=== PATIENT | male | born 1985 | race African-American/Black ===

== ENCOUNTER 2020-08-15 23:34 | Inpatient (IN) | payer OTHER, SELFPAY ==
[2020-08-16] MEDS ORDERED: IBUPROFEN 800 MG TAB PO ONE (00:46)
[2020-08-16] MEDS ORDERED: SODIUM CHLORIDE 0.9% 500 ML 500 ML IV ONE (00:46)
[2020-08-16 01:36] LABS: Basophils % (Auto) 0.3 % (0.0-1.8); Hematocrit 43.4 % (35.5-45.6); Hemoglobin 15.2 gm/dl (11.8-15.2); Lymphocytes # (Auto) 0.8 K/mm3 (1.2-5.4); Lymphocytes % (Auto) 8.2 % (13.4-35.0); Mean Corpuscular HGB Conc 35 % (32-34); Mean Corpuscular Volume 91 fl (84-94); Monocytes # (Auto) 0.5 K/mm3 (0.0-0.8); Monocytes % (Auto) 4.4 % (0.0-7.3); Platelet Count 212 K/mm3 (140-440); Red Blood Count 4.79 M/mm3 (3.65-5.03)
[2020-08-16 01:45] LABS: INR 1.08 (0.87-1.13)
--- NOTE | 2020-08-16 01:50 | XRay Report ---
CHEST 1 VIEW 08/16/2020 1:28 AM INDICATION / CLINICAL INFORMATION: possible Sepsis. Fever and headache. COMPARISON: None available. FINDINGS: SUPPORT DEVICES: None. HEART / MEDIASTINUM: No significant abnormality. LUNGS / PLEURA: No significant pulmonary or pleural abnormality. No pneumothorax. ADDITIONAL FINDINGS: No significant additional findings. IMPRESSION: 1. No acute findings. Signer Name: Christine Joseph MD Signed: 08/16/2020 1:45 AM Workstation Name: [id number]
[2020-08-16 01:57] LABS: Alanine Aminotransferase 134 units/L (7-56); Albumin 4.3 g/dL (3.9-5); BUN/Creatinine Ratio 9; Blood Urea Nitrogen 9 mg/dL (9-20); Calcium 8.9 mg/dL (8.4-10.2); Hemolysis Index 11
[2020-08-16] MEDS ORDERED: SODIUM CHLORIDE 0.9% 1000 ML 1,000 ML IV ONE ×2 (02:51→06:30)
[2020-08-16] MEDS ORDERED: SODIUM CHLORIDE 0.9% 1000 ML IV SOLN IV ONE (04:16)
[2020-08-16] MEDS ORDERED: CEFEPIME/NS 2 GM/100 ML 2 GM/100 ML BAG IV ONE (04:17)
--- NOTE | 2020-08-16 04:25 | Emergency Department Report ---
ED Fever HPI - General Chief Complaint: Fever Stated Complaint: FEVER Time Seen by Provider: 08/16/20 02:16 Source: patient - History of Present Illness Initial Comments: 35-year-old male, no past medical history, presents to ED with complaint of fever. Patient reports fever began last night around 6 PM. He reports associated headache, sore throat. He denies any cough, shortness of breath, vomiting, diarrhea, abdominal pain. He denies any known contact with anyone who has tested positive for COVID-19. Timing/Duration: this evening Fever Severity/Quality: subjective Fever Therapy SILK BLOCKER: Ibuprofen, Tylenol Associated Symptoms: headache, muscle aches, sore throat. denies: abdominal pain, chest pain, cough, nausea/vomiting, shortness of breath ED Review of Systems ROS: Stated complaint: FEVER Other details as noted in HPI Comment: All other systems reviewed and negative Constitutional: fever ENT: throat pain Respiratory: denies: cough, shortness of breath Cardiovascular: denies: chest pain Gastrointestinal: denies: abdominal pain, nausea, vomiting, diarrhea Musculoskeletal: myalgia Neurological: headache ED Past Medical Hx - Past Medical History Previous Medical History?: No - Surgical History Past Surgical History?: No - Social History Smoking Status: Current Every Day Smoker Substance Use Type: None ED Physical Exam - General Limitations: No Limitations General appearance: alert, in no apparent distress - Head Head exam: Present: atraumatic, normocephalic - Eye Eye exam: Present: normal appearance, PERRL, EOMI - ENT ENT exam: Present: mucous membranes moist - Neck Neck exam: Present: normal inspection - Respiratory Respiratory exam: Present: normal lung sounds bilaterally. Absent: respiratory distress - Cardiovascular Cardiovascular Exam: Present: regular rate, normal rhythm - GI/Abdominal GI/Abdominal exam: Present: soft. Absent: distended, tenderness - Extremities Exam Extremities exam: Present: normal inspection - Neurological Exam Neurological exam: Present: alert, oriented X3 - Psychiatric Psychiatric exam: Present: normal affect, normal mood - Skin Skin exam: Present: warm, dry, intact, normal color ED Course Vital Signs 08/16/20 08/16/20 08/16/20 00:38 00:51 02:10 Temperature 102.3 F H Pulse Rate 128 H 103 H Respiratory 20 18 Rate Blood Pressure Blood Pressure 98/42 [Right] O2 Sat by Pulse 97 Oximetry 08/16/20 08/16/20 08/16/20 02:15 02:30 02:45 Temperature Pulse Rate 100 H 92 H 95 H Respiratory 27 H 25 H 29 H Rate Blood Pressure 99/56 91/56 95/60 Blood Pressure [Right] O2 Sat by Pulse 93 95 97 Oximetry 08/16/20 02:48 Temperature 99 F Pulse Rate Respiratory Rate Blood Pressure Blood Pressure [Right] O2 Sat by Pulse Oximetry ED Medical Decision Making - Lab Data Result diagrams: 08/16/20 01:02 08/16/20 01:02 - EKG Data -: EKG Interpreted by Nv EKG shows normal: sinus rhythm, axis, intervals, QRS complexes, ST-T waves Rate: tachycardia (rate 114) - EKG Data Interpretation: no acute changes - Radiology Data Radiology results: report reviewed, image reviewed - Medical Decision Making 35-year-old male presents to ED with fever, headache, sore throat, body aches. Rapid flu and strep tests are both negative. Chest x-ray is negative. Patient denies any shortness of breath. O2 sats are normal. WBCs are normal, not elevated. Patient does have elevated LFTs. Abdomen is soft, nontender. He denies any vomiting or diarrhea. Abdominal ultrasound only shows hepatic steatosis. Patient has had slightly low blood pressures during his ED stay. He has been given 30 cc/kg normal saline bolus. Blood cultures drawn, cefepime given. Covid markers sent. Covid test pending. Patient will be admitted to hospitalist for further management. - Differential Diagnosis Pneumonia, influenza, COVID-19, UTI Critical Care Time: Yes Critical care time in (mins) excluding proc time.: 35 Critical care attestation.: If time is entered above; I have spent that time in minutes in the direct care of this critically ill patient, excluding procedure time. Critical Care Time: 35 min ED Disposition Clinical Impression: Suspected 2019 novel coronavirus infection, Sepsis, Transaminitis Disposition: 09 OP ADMIT IP TO THIS HOSP Is pt being admited?: Yes Condition: Stable Referrals: PRIMARY CARE, [Primary Care Provider] - 3-5 Days Time of Disposition: 04:46
--- NOTE | 2020-08-16 04:38 | Ultrasound Report ---
ULTRASOUND ABDOMEN, COMPLETE INDICATION / CLINICAL INFORMATION: fever, elevated liver enzymes. COMPARISON: None available. FINDINGS: PANCREAS: No significant abnormality. ABDOMINAL AORTA: No significant abnormality. IVC: No significant abnormality. LIVER: Upper normal size measuring 16.4 cm. Liver is mildly echogenic. GALLBLADDER: No significant abnormality. BILE DUCTS: No significant abnormality. Common bile duct measures 2.4 mm. KIDNEYS: Right: No significant abnormality. Left: No significant abnormality. SPLEEN: No significant abnormality. FREE FLUID: None. ADDITIONAL FINDINGS: None. IMPRESSION: 1. Echogenic liver which can be seen in the setting of hepatic steatosis. Signer Name: Christine Joseph MD Signed: 08/16/2020 4:34 AM Workstation Name: [id number]
[2020-08-16 04:56] LABS: Bacteria,Urine 1+ /HPF (Negative); Bilirubin,Urine NEG (Negative); Blood,Urine NEG (Negative); Color,Urine Yellow (Yellow); Protein,Urine <15 mg/dL mg/dL (Negative); RBC,Urine < 1.0 /HPF (0.0-6.0)
--- NOTE | 2020-08-16 05:17 | History and Physical Report ---
History of Present Illness Date of examination: 08/16/20 Date of admission: 08/16/20 Chief complaint: Fever headache General body ache History of present illness: Howard is a 35-year-old male presents to ED with complaint of fever. His fever started last night around 6 PM. He reports associated headache, sore throat. He denies any cough, shortness of breath, vomiting, diarrhea, abdominal pain. He denies any known contact with anyone who has tested positive for COVID-19. ED work up shows WBC 10.3, hemoglobin 15.2, sodium 136, AST 154, ALT 134, influnenza A/B negative Abdominal US negative, Chest x-ray-no acute finding Patient seen at bedside in ED. patient denies tobacco, alcohol, and illicit drug use. patient reports Headache -pain level 7/10, He also reports generalized body ache. Past History Past Medical History: No medical history Past Surgical History: No surgical history Social history: no significant social history Family history: no significant family history Medications and Allergies Allergies Allergy/AdvReac Type Severity Reaction Status Date / Time No Known Allergies Allergy Verified 08/16/20 02:18 Review of Systems Constitutional: fever, fatigue Ears, nose, mouth and throat: sore throat Neurological: headaches Exam - Constitutional Vitals: Temp Pulse Resp BP Pulse Ox 99 F 95 H 29 H 95/60 97 08/16/20 02:48 08/16/20 02:45 08/16/20 02:45 08/16/20 02:45 08/16/20 02:45 General appearance: Present: mild distress, well-nourished - EENT Eyes: Present: PERRL ENT: hearing intact, clear oral mucosa - Neck Neck: Present: supple, normal ROM - Respiratory Respiratory effort: normal Respiratory: bilateral: CTA - Cardiovascular Heart rate: 95 Heart Sounds: Present: S1 & S2. Absent: rub, click - Extremities Extremities: pulses symmetrical, No edema Peripheral Pulses: within normal limits - Abdominal General gastrointestinal: Present: soft, non-tender, non-distended, normal bowel sounds Male genitourinary: Present: normal - Integumentary Integumentary: Present: clear, warm, dry - Musculoskeletal Musculoskeletal: gait normal, strength equal bilaterally - Psychiatric Psychiatric: appropriate mood/affect, intact judgment & insight, cooperative - Neurologic Neurologic: CNII-XII intact, moves all extremities - Allied Health Allied health notes reviewed: nursing, PT Results - Labs CBC & Chem 7: 08/16/20 01:02 08/16/20 04:27 Labs: Abnormal lab results 08/16/20 08/16/20 08/16/20 Range/Units 01:02 01:02 01:02 MCHC 35 H (32-34) % RDW 13.0 L (13.2-15.2) % Lymph % (Auto) 8.2 L (13.4-35.0) % Lymph # (Auto) 0.8 L (1.2-5.4) K/mm3 Seg Neutrophils % 87.1 H (40.0-70.0) % Seg Neutrophils # 9.0 H (1.8-7.7) K/mm3 Sodium 136 L (137-145) mmol/L Chloride 97.0 L (98-107) mmol/L Glucose 181 H (75-100) mg/dL Lactic Acid 2.50 H* (0.7-2.0) mmol/L AST 154 H (5-40) units/L ALT 134 H (7-56) units/L Assessment and Plan - Patient Problems (1) DVT prophylaxis Current Visit: Yes Status: Acute Plan to address problem: lovenox (2) Sepsis Current Visit: Yes Status: Acute Plan to address problem: Lactic acid 2.5 and repeat normal Monitor vital sighs Given Iv bolus in ED Flu, strep test done negative Will do covid 19 test-in am Blood and throat culture Empiric abx with rocephine (3) Suspected 2019 novel coronavirus infection Current Visit: Yes Status: Acute Plan to address problem: isolation precaution Check covid 19 test monitor inflammatory makers (4) Transaminitis Current Visit: Yes Status: Acute Plan to address problem: ? cause Abdominal US negative continue IV hydration
[2020-08-16 05:28] LABS: C-Reactive Protein 7.1 mg/dL (0.00-1.30)
[2020-08-16] MEDS ORDERED: SODIUM CHLORIDE 0.9% 1000 ML 1,000 ML ONE ×3 (06:31→20:06)
[2020-08-16] MEDS ORDERED: methylPREDNISolone Sod Succinate 125 MG/2 ML INJ IV ONE (06:44)
[2020-08-16] MEDS ORDERED: methylPREDNISolone Sod Succinate 125 MG/2 ML INJ ONE ×2 (06:46→16:06)
[2020-08-16] MEDS ORDERED: cefTRIAXone/NS 1 GM/50 ML 1 GM/50 ML BAG IV ONE (10:20)
--- NOTE | 2020-08-16 10:38 | Cat Scan Report ---
CT head/brain wo con INDICATION / CLINICAL INFORMATION: 35 years Male; headache. TECHNIQUE: Routine CT head without contrast. All CT scans at this location are performed using CT dos e reduction for ALARA by means of automated exposure control. COMPARISON: None. FINDINGS: BRAIN / INTRACRANIAL CONTENTS: The brain demonstrate appropriate attenuation for age. The ventricular system is within normal limits in size and configuration. There is no CT evidence of acute intracran ial hemorrhage or significant mass effect. ORBITS: No significant abnormality of visualized orbits. SINUSES / MASTOIDS: There is focal opacification involving the anterior left ethmoid air cells. CRANIOCERVICAL JUNCTION: No significant abnormality. ADDITIONAL FINDINGS: None. IMPRESSION: 1. There is no CT evidence of acute intracranial process. 2. There is focal opacification involving the anterior left ethmoid air cells. Signer Name: Evan Chahal MD Signed: 08/16/2020 10:33 AM Workstation Name: [id number]
--- NOTE | 2020-08-16 10:43 | Cat Scan Report ---
CTA CHEST WITH IV CONTRAST INDICATION: Acute onset chest pain with dyspnea TECHNIQUE: Axial CT images were obtained through the chest after injection of 100 mL IV contrast. 3 plane MIP re constructions were produced. All CT scans at this location are performed using CT dose reduction for ALARA by means of automated exposure control. COMPARISON: None available. FINDINGS: PULMONARY ARTERIES: No pulmonary emboli. Technique for detection of pulmonary thromboembolus is decre ased secondary to arm position. AORTA AND ARTERIES: No acute abnormality. MEDIASTINUM: No mass, lymphadenopathy or other significant abnormality. The heart is normal in size w ithout a pericardial effusion. The trachea and main bronchi are patent and normal in caliber. LUNGS: No suspicious consolidation, nodule or mass. No pneumothorax or pleural effusion. ADDITIONAL FINDINGS: Fatty liver. UPPER ABDOMEN: No acute findings. BONES: No significant osseous abnormality. IMPRESSION: 1. No definite CT evidence for pulmonary embolism. 2. No acute findings. Signer Name: Paco Zhu MD Signed: 08/16/2020 10:38 AM Workstation Name: [id number]
[2020-08-16] MEDS: cefTRIAXone/NS 1 GM/50 ML 1 GM/50 ML BAG IV SCH (13:23)
[2020-08-16] MEDS: ZINC SULFATE 220 MG CAP PO SCH (13:24)
[2020-08-16] MEDS: ASCORBIC ACID 500 MG TAB PO SCH ×2 (13:24→22:59)
--- NOTE | 2020-08-16 13:53 | Consultation ---
History of Present Illness - Reason for Consult Consult date: 08/16/20 r/o covid Requesting physician: OSMANI NAVARRETE - History of Present Illness 35 years old male without any medical history admitted on 08/16/2020 due to 24- hour history of severe generalized malaise, fever, headaches and sore throat. Patient denies any cough, shortness of breath, dyspnea on exertion, nausea, vomiting, diarrhea. Patient denies any contact with COVID-19 patients. On arrival, temperature 102.3, HR 128, RR 27, O2 sat 97, BP 98/42. Initial WBC 10.3. AST 154. ALT 134. Ferritin 905. D-dimer 407. Procalcitonin 0.45. Urinalysis negative. Group A strep antigen negative. Influenza antigen negative. Blood culture 08/16/2020 pending. Chest x-ray unremarkable. CT [facility] [address] shows no pulmonary embolism, no pneumonia. CT of the head shows focal left ethmoid sinusitis. Ultrasound of the abdomen shows echogenic liver consistent with hepatic steatosis. Patient is currently on room air. Review of Systems: reviewed ED and H&P notes. Limited due to PPE conservation strategy Past History Past Medical History: No medical history Past Surgical History: No surgical history Social history: no significant social history Family history: no significant family history Medications and Allergies Allergies Allergy/AdvReac Type Severity Reaction Status Date / Time No Known Allergies Allergy Verified 08/16/20 02:18 Active Meds: Active Medications Ascorbic Acid (Vitamin C) 500 mg PO BID CATRACHITO Last Admin: 08/16/20 13:24 Dose: 500 mg Documented by: Azithromycin 500 mg/ Sodium (Chloride) 250 mls @ 250 mls/hr IV Q24HR CATRACHITO; Protocol Sodium Chloride (Nacl 0.9% 1000 Ml) 1,000 mls @ 100 mls/hr IV DIRECT CATRACHITO Ceftriaxone Sodium (Rocephin/Ns 1 Gm/50 Ml) 1 gm in 50 mls @ 100 mls/hr IV Q24HR CATRACHITO; Protocol Last Admin: 08/16/20 13:23 Dose: 100 mls/hr Documented by: Methylprednisolone Sodium Succinate (Solu-Medrol) 125 mg IV Q8HR CATRACHITO Zinc Sulfate (Zinc Sulfate) 220 mg PO QDAY CATRACHITO Last Admin: 08/16/20 13:24 Dose: 220 mg Documented by: Physical Examination - Physical Exam Narrative exam: Physical Exam: reviewed ED and hospitalist notes, limited due to conservation of PPE and decrease risk of transmission. General appearance: limited due to conservation of PPE Eyes: limited due to conservation of PPE HENT: Atraumatic; limited due to conservation of PPE Lungs: limited due to conservation of PPE CV: limited due to conservation of PPE Abdomen: limited due to conservation of PPE Extremities: limited due to conservation of PPE Skin: limited due to conservation of PPE Psych: limited due to conservation of PPE Neuro: limited due to conservation of PPE - Constitutional Vitals: Vital Signs Temp Pulse Resp BP Pulse Ox 98.2 F 120 H 35 H 85/47 97 08/16/20 05:38 08/16/20 10:09 08/16/20 10:09 08/16/20 10:09 08/16/20 10:09 Temperature -Last 24 Hours Temperature 98.2 F Temperature 99 F Temperature 102.3 F Results - Labs CBC & Chem 7: 08/16/20 01:02 08/16/20 04:27 Labs: Abnormal lab results 08/16/20 08/16/20 08/16/20 Range/Units 01:02 01:02 01:02 MCHC 35 H (32-34) % RDW 13.0 L (13.2-15.2) % Lymph % (Auto) 8.2 L (13.4-35.0) % Lymph # (Auto) 0.8 L (1.2-5.4) K/mm3 Seg Neutrophils % 87.1 H (40.0-70.0) % Seg Neutrophils # 9.0 H (1.8-7.7) K/mm3 D-Dimer (0-234) ng/mlDDU Sodium 136 L (137-145) mmol/L Chloride 97.0 L (98-107) mmol/L Glucose 181 H (75-100) mg/dL Lactic Acid 2.50 H* (0.7-2.0) mmol/L Ferritin (30.0-300.0) ng/mL AST 154 H (5-40) units/L ALT 134 H (7-56) units/L Lactate Dehydrogenase (91-180) units/L C-Reactive Protein (0.00-1.30) mg/dL 08/16/20 08/16/20 08/16/20 Range/Units 04:27 04:27 04:27 MCHC (32-34) % RDW (13.2-15.2) % Lymph % (Auto) (13.4-35.0) % Lymph # (Auto) (1.2-5.4) K/mm3 Seg Neutrophils % (40.0-70.0) % Seg Neutrophils # (1.8-7.7) K/mm3 D-Dimer 407.28 H (0-234) ng/mlDDU Sodium (137-145) mmol/L Chloride (98-107) mmol/L Glucose 117 H (75-100) mg/dL Lactic Acid (0.7-2.0) mmol/L Ferritin 905.5 H (30.0-300.0) ng/mL AST (5-40) units/L ALT (7-56) units/L Lactate Dehydrogenase 252 H (91-180) units/L C-Reactive Protein 7.10 H (0.00-1.30) mg/dL Assessment and Plan Cultures: Blood culture SARS CoV2 PCR Assessment: 35 years old male without any medical history admitted on 08/16/2020 due to 24-hour history of severe generalized malaise, fever, headaches and sore throat: #SIRS rule out sepsis: Present on admission with high fever, tachycardia, hypot ension, elevated lactate; of unclear etiology. Constellation of symptoms suspicious for COVID-19 and influenza. Chest x-ray negative for consolidation. CT of the chest negative for consolidation or PE. Rapid strep antigen negative. Influenza antigen negative. Blood cultures pending. CT head with focal left ethmoidal sinusitis. Patient is on room air, no evidence of hypoxia. Noted procalcitonin mildly elevated at 0.4. #Transaminitis: Of unclear etiology, slightly secondary to baseline systemic infection ? COVID-19 versus influenza. Ultrasound of the liver showing hepatic steatosis. Recommendations: -Obtain influenza PCR -Obtain acute hepatitis panel -Follow-up SARS-CoV-2 PCR -pending -If SARS-CoV-2 PCR and influenza PCR negative consider lumbar puncture to rule out meningitis -No indication for dexamethasone or remdesivir as patient is not hypoxic -Continue ceftriaxone and azithromycin for now -Monitor liver function test All laboratory, cultures and imaging were reviewed. Will follow Marianna De Leon MD Infectious Diseases Police Officer Booking [facility] ([facility]) M [phone] O [phone]
[2020-08-16] MEDS: AZITHROMYCIN 500 MG in SODIUM CHLORIDE 0.9% 250ML 250 ML IV SCH (14:12)
--- NOTE | 2020-08-16 16:34 | Event Note ---
Date: 08/16/20 This is the second IMS visit of the day Patient had a complete history and physical earlier this morning ID note reviewed Covid test is indeterminate Will be repeated tomorrow Influenza is negative Continue present care I did not do a physical examination on the patient to preserve PPE Also patient was seen only a few hours earlier and had a complete physical All lab results were reviewed
[2020-08-16] MEDS: methylPREDNISolone Sod Succinate 125 MG/2 ML INJ IV SCH ×2 (16:41→22:59)
[2020-08-16] MEDS ORDERED: ONDANSETRON 4 MG/2 ML INJ IV NR (19:00)
[2020-08-16] MEDS: SODIUM CHLORIDE 0.9% 1000 ML 1,000 ML IV SCH (20:11)
[2020-08-17] MEDS ORDERED: methylPREDNISolone Sod Succinate 125 MG/2 ML INJ ONE ×2 (05:50→14:05)
[2020-08-17] MEDS ORDERED: oxyCODONE /ACETAMINOPHEN 5-325MG TAB ONE ×2 (05:50)
[2020-08-17] MEDS ORDERED: ZINC SULFATE 220 MG CAP PO ONE (10:15)
[2020-08-17] MEDS ORDERED: cefTRIAXone/NS 2 GM/100 ML IVPB IV ONE (10:15)
[2020-08-17] MEDS ORDERED: ASCORBIC ACID 500 MG TAB ONE (10:15)
[2020-08-17] MEDS ORDERED: cefTRIAXone/NS 2 GM/100 ML 2 GM/100 ML BAG IV ONE (10:18)
[2020-08-17] MEDS ORDERED: SODIUM CHLORIDE 0.9% 1000 ML IV SOLN ONE (10:27)
--- NOTE | 2020-08-17 16:42 | Physician Progress Note ---
TIME: 10:20 OBJECTIVE:awake and responsive. Headache better GENERAL: Awake, responsive, improved headache. VITAL SIGNS: 100/70, 76, 20.Pulse ox on RA 99% LUNGS: Distant. CARDIOVASCULAR: Normal S1, S2. ABDOMEN: Positive bowel sounds, soft, nontender. Neuro: awake responsive. oriented to person. place and time ASSESSMENT AND PLAN: COVID-19, possible, test pending; headache, possible meningitis; hypotension, improved. The patient is doing well and antibiotics ordered as per ID, improving clinically. The patient encouraged to prone, deep breathing. Continue supportive care, monitor respiratory and neurological status closely. Possible LP today. Continue ICU for now. JOB# [id number] CHRISTY/JOSE WALSH
[2020-08-17] MEDS: AZITHROMYCIN 500 MG in SODIUM CHLORIDE 0.9% 250ML 250 ML IV SCH (17:20)
[2020-08-17] MEDS: cefTRIAXone/NS 1 GM/50 ML 1 GM/50 ML BAG IV SCH (17:20)
[2020-08-17] MEDS: ASCORBIC ACID 500 MG TAB PO SCH ×2 (17:21→23:18)
[2020-08-17] MEDS: methylPREDNISolone Sod Succinate 125 MG/2 ML INJ IV SCH ×2 (17:21→23:18)
[2020-08-17] MEDS: ZINC SULFATE 220 MG CAP PO SCH (17:21)
[2020-08-17] MEDS: SODIUM CHLORIDE 0.9% 1000 ML 1,000 ML IV SCH ×2 (18:41→23:17)
--- NOTE | 2020-08-17 19:08 | Progress Note ---
Assessment and Plan Cultures: Blood culture pending SARS CoV2 PCR indeterminate Assessment: 35 years old male without any medical history admitted on 08/16/2020 due to 24-hour history of severe generalized malaise, fever, headaches and sore throat: #SIRS rule out sepsis: Present on admission with high fever, tachycardia, hypotension, elevated lactate; of unclear etiology. Constellation of symptoms s uspicious for COVID-19 and influenzaChest x-ray negative for consolidation. CT of the chest negative for consolidation or PE. Rapid strep antigen negative. Influenza antigen negative. Blood cultures pending. CT head with focal left ethmoidal sinusitis. Patient is on room air, no evidence of hypoxia. Noted procalcitonin mildly elevated at 0.4. #Transaminitis: Of unclear etiology, slightly secondary to baseline systemic infection ? COVID-19 versus influenza. Ultrasound of the liver showing hepatic steatosis. Recommendations: -Obtain lumbar puncture send CSF for Gram stain, culture, cell count, differential, glucose, protein, cryptococcal antigen, VDRL, HSV PCR -Obtain influenza PCR -pending -Obtain acute hepatitis panel panel -Repeat SARS-CoV-2 PCR, initially indeterminate -Start ceftriaxone 2 g IV every 24 hours and vancomycin IV with PK consult until meningitis is ruled out -No indication for dexamethasone or remdesivir as patient is not hypoxic -Monitor liver function test All laboratory, cultures and imaging were reviewed. Will follow Marianna De Leon MD Infectious Diseases Planning And Analysis Manager [facility] [place] [facility] ([facility]) M [phone] O [phone] Subjective Date of service: 08/17/20 Principal diagnosis: febrile syndrome Interval history: Patient feels some better still chills and sweating, complaining of headache. Objective - Exam Narrative Exam: General appearance: Alert in NAD pleasant Eyes: anicteric sclerae, moist conjunctivae; no lid-lag; PERRLA HENT: Atraumatic; oropharynx clear with moist mucous membranes and no oral thrush; normal hard and soft palate. Neck: Supple Lungs: CTA, with normal respiratory effort and no intercostal retractions CV: RRR no murmur Abdomen: Soft, non-tender; no masses or hepatosplenomegaly Extremities: no edema, no cyanosis Skin: No rash. Psych: Appropriate affect, alert and oriented to person, place and time. Neuro: alert and oriented x 3. Moving all extermities - Constitutional Vitals: Vital Signs Temp Pulse Resp BP Pulse Ox 97.9 F 83 21 84/42 97 08/16/20 22:00 08/17/20 07:40 08/17/20 07:40 08/17/20 07:40 08/17/20 07:40 Temperature -Last 24 Hours Temperature 97.9 F Temperature 98.1 F - Labs CBC & Chem 7: 08/16/20 01:02 08/16/20 04:27
[2020-08-17] MEDS ORDERED: oxyCODONE /ACETAMINOPHEN 5-325MG TAB PO PRN (19:44)
[2020-08-17] MEDS ORDERED: VANCOMYCIN PHARMACY TO DOSE IV SCH (20:00)
[2020-08-17] MEDS ORDERED: oxyCODONE /ACETAMINOPHEN 5-325MG TAB PO ONE (20:00)
--- NOTE | 2020-08-17 22:18 | Progress Note ---
Subjective Date of service: 08/17/20 Principal diagnosis: febrile syndrome Objective - Constitutional Vitals: Vital Signs - 12hr 08/17/20 08/17/20 08/17/20 12:30 12:40 12:50 Temperature Pulse Rate 62 69 56 L Respiratory 16 13 12 Rate Blood Pressure 97/46 97/46 97/46 O2 Sat by Pulse 100 99 95 Oximetry 08/17/20 08/17/20 08/17/20 13:00 13:10 13:20 Temperature Pulse Rate 77 70 80 Respiratory 22 17 18 Rate Blood Pressure 104/57 104/57 104/57 O2 Sat by Pulse 100 97 94 Oximetry 08/17/20 08/17/20 08/17/20 13:30 13:40 13:50 Temperature Pulse Rate 72 75 67 Respiratory 15 15 19 Rate Blood Pressure 104/57 104/57 104/57 O2 Sat by Pulse 96 96 94 Oximetry 08/17/20 08/17/20 08/17/20 14:00 14:10 14:20 Temperature Pulse Rate 75 59 L 92 H Respiratory 20 17 21 Rate Blood Pressure 104/52 104/57 104/57 O2 Sat by Pulse 97 95 97 Oximetry 08/17/20 08/17/20 08/17/20 14:30 14:40 14:50 Temperature Pulse Rate 68 56 L 69 Respiratory 19 14 14 Rate Blood Pressure 104/52 104/52 104/52 O2 Sat by Pulse 96 97 96 Oximetry 08/17/20 08/17/20 08/17/20 15:00 15:10 15:20 Temperature Pulse Rate 107 H 69 58 L Respiratory 20 16 14 Rate Blood Pressure 104/52 104/52 104/52 O2 Sat by Pulse 95 97 95 Oximetry 08/17/20 08/17/20 08/17/20 15:30 15:40 15:50 Temperature Pulse Rate 89 72 70 Respiratory 24 19 17 Rate Blood Pressure 104/52 104/52 104/52 O2 Sat by Pulse 96 97 95 Oximetry 08/17/20 08/17/20 08/17/20 16:00 16:10 16:20 Temperature Pulse Rate 71 80 76 Respiratory 15 14 15 Rate Blood Pressure 94/49 94/49 94/49 O2 Sat by Pulse 96 95 93 Oximetry 08/17/20 08/17/20 08/17/20 16:30 16:40 16:50 Temperature Pulse Rate 101 H 89 79 Respiratory 27 H 21 23 Rate Blood Pressure 94/49 94/49 94/49 O2 Sat by Pulse 97 96 96 Oximetry 08/17/20 08/17/20 08/17/20 17:00 17:10 17:20 Temperature Pulse Rate 79 95 H 85 Respiratory 23 22 23 Rate Blood Pressure 107/59 107/59 107/59 O2 Sat by Pulse 98 97 Oximetry 08/17/20 08/17/20 08/17/20 17:30 17:40 17:50 Temperature Pulse Rate 80 86 86 Respiratory 21 22 24 Rate Blood Pressure 107/59 107/59 107/59 O2 Sat by Pulse 96 94 100 Oximetry 08/17/20 08/17/20 08/17/20 18:00 18:10 18:20 Temperature Pulse Rate 82 78 80 Respiratory 19 22 25 H Rate Blood Pressure 91/53 91/53 91/53 O2 Sat by Pulse 100 96 96 Oximetry 08/17/20 08/17/20 08/17/20 18:30 18:40 18:50 Temperature Pulse Rate 81 76 Respiratory 25 H 22 24 Rate Blood Pressure 91/53 91/53 91/53 O2 Sat by Pulse 97 97 74 L Oximetry 08/17/20 08/17/20 08/17/20 19:00 19:10 19:20 Temperature Pulse Rate 73 84 78 Respiratory 21 25 H 23 Rate Blood Pressure 98/62 98/62 98/62 O2 Sat by Pulse 98 95 97 Oximetry 08/17/20 08/17/20 08/17/20 19:30 19:40 19:50 Temperature Pulse Rate 79 68 76 Respiratory 24 19 21 Rate Blood Pressure 98/62 98/62 98/62 O2 Sat by Pulse 98 100 97 Oximetry 08/17/20 08/17/20 08/17/20 20:00 20:10 20:20 Temperature 98.3 F Pulse Rate 83 79 76 Respiratory 24 23 20 Rate Blood Pressure 98/29 98/29 98/29 O2 Sat by Pulse 100 99 97 Oximetry 08/17/20 08/17/20 08/17/20 20:30 20:40 20:55 Temperature Pulse Rate 79 101 H Respiratory 24 25 H 18 Rate Blood Pressure 98/29 98/29 O2 Sat by Pulse 94 95 Oximetry - Labs CBC & Chem 7: 08/16/20 01:02 08/16/20 04:27
[2020-08-17] MEDS: cefTRIAXone/NS 2 GM/100 ML 2 GM/100 ML BAG IV SCH (23:17)
[2020-08-17] MEDS: VANCOMYCIN 1,500 MG in SODIUM CHLORIDE 0.9% 500 ML 500 ML IV SCH (23:18)
[2020-08-18] MEDS: methylPREDNISolone Sod Succinate 125 MG/2 ML INJ IV SCH ×3 (05:50→22:14)
[2020-08-18 08:43] LABS: Basophils % (Auto) 0.1 % (0.0-1.8); Hematocrit 34.8 % (35.5-45.6); Lymphocytes # (Auto) 1.7 K/mm3 (1.2-5.4); Lymphocytes % (Auto) 15.7 % (13.4-35.0); Mean Corpuscular HGB Conc 35 % (32-34); Mean Corpuscular Volume 90 fl (84-94); Monocytes # (Auto) 0.4 K/mm3 (0.0-0.8); Monocytes % (Auto) 3.7 % (0.0-7.3); Platelet Count 232 K/mm3 (140-440); Red Blood Count 3.89 M/mm3 (3.65-5.03); Red Cell Distribution Width 13.5 % (13.2-15.2)
[2020-08-18 08:50] LABS: Blood Urea Nitrogen 14 mg/dL (9-20); Calcium 8.6 mg/dL (8.4-10.2); Hemolysis Index 4
[2020-08-18 08:51] LABS: BUN/Creatinine Ratio 23
[2020-08-18] MEDS: cefTRIAXone/NS 2 GM/100 ML 2 GM/100 ML BAG IV SCH ×4 (09:58→22:13)
[2020-08-18 10:13] LABS: Band Neutrophils # (Manual) 1.1 K/mm3; Basophils % (Manual) 0 % (0.0-1.8); Eosinophils % (Manual) 0 % (0.0-4.3); Total Cells Counted 100
[2020-08-18 10:14] LABS: Platelet Estimate Consistent w Auto; RBC Morphology Normal
--- NOTE | 2020-08-18 10:14 | Progress Note ---
Assessment and Plan Cultures: Blood culture no growth today. SARS CoV2 PCR indeterminate Assessment: 35 years old male without any medical history admitted on 08/16/2020 due to 24-hour history of severe generalized malaise, fever, headaches and sore throat: #SIRS rule out sepsis: Fever resolved; of unclear etiology. Constellation of symptoms suspicious for COVID-19 and influenza. Chest x-ray negative for consolidation. CT of the chest negative for consolidation or PE. Rapid strep antigen negative. Influenza antigen negative. Blood cultures no growth today. CT head with focal left ethmoidal sinusitis. Patient is on room air, no evidence of hypoxia. Noted procalcitonin mildly elevated at 0.4. Other possibilities: Mononucleosis, meningitis. #Transaminitis: Of unclear etiology, slightly secondary to baseline systemic infection ? COVID-19 versus influenza. Ultrasound of the liver showing hepatic steatosis. Recommendations: -Obtain lumbar puncture send CSF for Gram stain, culture, cell count, differential, glucose, protein, cryptococcal antigen, VDRL, HSV PCR -pending -Obtain influenza PCR -pending -Obtain acute hepatitis panel panel -pending -Repeat SARS-CoV-2 PCR, initially indeterminate -pending -Continue ceftriaxone 2 g IV every 24 hours and vancomycin IV with PK consult until meningitis is ruled out -No indication for dexamethasone or remdesivir as patient is not hypoxic -Monitor liver function test -reordered All laboratory, cultures and imaging were reviewed. Will follow Marianna De Leon MD Infectious Diseases Acls Nurse [facility] M [phone] O [phone] Subjective Date of service: 08/18/20 Principal diagnosis: febrile syndrome Interval history: Patient reports feeling better, no headache, no fever. Objective - Exam Narrative Exam: General appearance: Alert in NAD pleasant Eyes: anicteric sclerae, moist conjunctivae; no lid-lag; PERRLA HENT: Atraumatic; oropharynx clear with moist mucous membranes and no oral thrush; normal hard and soft palate. Neck: Supple Lungs: CTA, with normal respiratory effort and no intercostal retractions CV: RRR no murmur Abdomen: Soft, non-tender; no masses or hepatosplenomegaly Extremities: no edema, no cyanosis Skin: No rash. Psych: Appropriate affect, alert and oriented to person, place and time. Neuro: alert and oriented x 3. Moving all extermities - Constitutional Vitals: Vital Signs Temp Pulse Resp BP Pulse Ox 98.3 F 69 18 104/53 96 08/18/20 04:34 08/18/20 04:34 08/18/20 04:34 08/18/20 04:34 08/18/20 04:34 Temperature -Last 24 Hours Temperature 98.3 F Temperature 98.1 F Temperature 98.3 F - Labs CBC & Chem 7: 08/18/20 06:30 08/18/20 06:30 Labs: Abnormal lab results 08/18/20 08/18/20 Range/Units 06:30 06:30 Hct 34.8 L D (35.5-45.6) % MCHC 35 H (32-34) % Seg Neutrophils % 80.5 H (40.0-70.0) % Seg Neutrophils # 8.8 H (1.8-7.7) K/mm3 Creatinine 0.6 L (0.8-1.3) mg/dL Glucose 161 H (75-100) mg/dL
--- NOTE | 2020-08-18 10:40 | Procedure Note ---
Date of procedure: 08/18/20 Pre-op diagnosis: fever, malaise, headache Post-op diagnosis: same Procedure: flouro guided lumbar puncture Findings: elevated CSF pressure - 310 mmH2O Anesthesia: local Surgeon: JAMARCUS DAVEY Estimated blood loss: none Pathology: list (4 CSF tubes 3-4cc/each) Specimen disposition: to lab Condition: stable Disposition: floor
--- NOTE | 2020-08-18 10:40 | Progress Note ---
Assessment and Plan - Patient Problems (1) Headache Current Visit: Yes Status: Acute (2) Sepsis Current Visit: Yes Status: Acute (3) Transaminitis Current Visit: Yes Status: Acute (4) COVID-19 Current Visit: Yes Status: Acute Subjective Principal diagnosis: febrile syndrome Interval history: awake Objective Vital Signs - 12hr 08/17/20 08/18/20 23:13 04:34 Temperature 98.1 F 98.3 F Pulse Rate 76 69 Respiratory 20 18 Rate Blood Pressure 106/63 104/53 O2 Sat by Pulse 96 96 Oximetry Constitutional: no acute distress Eyes: non-icteric ENT: oropharynx moist Effort: normal Ascultation: Bilateral: clear Cardiovascular: regular rate and rhythm Gastrointestinal: normoactive bowel sounds, soft, non-tender Neurologic: normal mental status, non-focal exam Psychiatric: mood appropriate, affect normal CBC and BMP: 08/18/20 06:30 08/18/20 06:30 ABG, PT/INR, D-dimer: PT/INR, D-dimer PT 14.1 Sec. (12.2-14.9) 08/16/20 01:02 INR 1.08 (0.87-1.13) 08/16/20 01:02 D-Dimer 407.28 ng/mlDDU (0-234) H 08/16/20 04:27 Abnormal lab findings: Abnormal Labs 08/16/20 08/16/20 08/16/20 01:02 01:02 01:02 Hct MCHC 35 H RDW 13.0 L Lymph % (Auto) 8.2 L Lymph # (Auto) 0.8 L Seg Neutrophils % 87.1 H Seg Neuts % (Manual) Lymphocytes % (Manual) Seg Neutrophils # 9.0 H Seg Neutrophils # Man Lymphocytes # (Manual) D-Dimer Sodium 136 L Chloride 97.0 L Creatinine Glucose 181 H Lactic Acid 2.50 H* Ferritin AST 154 H ALT 134 H Lactate Dehydrogenase C-Reactive Protein 08/16/20 08/16/20 08/16/20 04:27 04:27 04:27 Hct MCHC RDW Lymph % (Auto) Lymph # (Auto) Seg Neutrophils % Seg Neuts % (Manual) Lymphocytes % (Manual) Seg Neutrophils # Seg Neutrophils # Man Lymphocytes # (Manual) D-Dimer 407.28 H Sodium Chloride Creatinine Glucose 117 H Lactic Acid Ferritin 905.5 H AST ALT Lactate Dehydrogenase 252 H C-Reactive Protein 7.10 H 08/18/20 08/18/20 06:30 06:30 Hct 34.8 L D MCHC 35 H RDW Lymph % (Auto) Lymph # (Auto) Seg Neutrophils % 80.5 H Seg Neuts % (Manual) 77.0 H Lymphocytes % (Manual) 9.0 L Seg Neutrophils # 8.8 H Seg Neutrophils # Man 8.4 H Lymphocytes # (Manual) 1.0 L D-Dimer Sodium Chloride Creatinine 0.6 L Glucose 161 H Lactic Acid Ferritin AST ALT Lactate Dehydrogenase C-Reactive Protein
[2020-08-18 11:59] LABS: Alanine Aminotransferase 120 units/L (7-56); Albumin 3.4 g/dL (3.9-5); Bilirubin,Direct < 0.2 mg/dL (0-0.2)
[2020-08-18 12:07] LABS: Glucose,CSF 95 mg/dL
[2020-08-18 12:42] LABS: Appearance,CSF Clear; Red Blood Cell,CSF 0 /mm3 (0-0); White Blood Cell,CSF 3 /mm3 (1-10)
[2020-08-18] MEDS: ZINC SULFATE 220 MG CAP PO SCH (13:04)
[2020-08-18] MEDS: ASCORBIC ACID 500 MG TAB PO SCH ×2 (13:05→22:15)
[2020-08-18 13:36] LABS: Basophils CSF 0 %; Total Cells Counted 66 /mm3
[2020-08-18 14:54] LABS: Hepatitis B Surface Antigen Non-Reactive (Negative); Hepatitis C Virus Antibody Non-Reactive (NonReactive)
--- NOTE | 2020-08-18 14:55 | Fluoroscopy Report ---
LUMBAR PUNCTURE INDICATION : Rule out meningitis, headache PROCEDURE: The risks (including but not limited to bleeding, infection, and spinal headache) and gualberto efits were explained to the patient and informed consent was obtained. A time out procedure was perf ormed. The procedure site was prepped and draped in the usual sterile fashion and lidocaine was used for local anesthesia. Under fluoroscopic guidance, a 22-gauge spinal needle was advanced into the L4-5 interlaminar space. The opening pressure was 310 mm H2O which was calculated by adding the length of the needle (9 cm) to the height of the CSF column. 4 separate collection tubes were used to obtain 3-4 mL of CSF. Each Sa mples were sent to the lab per the ordering physician specifications for further evaluation. The patient tolerated the procedure well with no complications. IMPRESSION: Successful lumbar puncture as outlined above. Opening pressure was 310 mm H20. Fluoroscopic time: 0.5 Number of fluoroscopic images: 1 Signer Name: Juan R May Jr, MD Signed: 08/18/2020 2:50 PM Workstation Name: [id number]
[2020-08-18] MEDS: VANCOMYCIN 1,500 MG in SODIUM CHLORIDE 0.9% 500 ML 500 ML IV SCH ×2 (17:24→23:13)
--- NOTE | 2020-08-18 17:24 | Progress Note ---
Subjective Date of service: 08/18/20 Principal diagnosis: febrile syndrome Objective - Constitutional Vitals: Vital Signs - 12hr 08/18/20 12:55 Temperature 97.8 F Pulse Rate 92 H Respiratory 20 Rate Blood Pressure 115/66 O2 Sat by Pulse 94 Oximetry - Labs CBC & Chem 7: 08/18/20 06:30 08/18/20 06:30 Labs: Abnormal lab results 08/18/20 08/18/20 08/18/20 Range/Units 06:30 06:30 06:30 Hct 34.8 L D (35.5-45.6) % MCHC 35 H (32-34) % Seg Neutrophils % 80.5 H (40.0-70.0) % Seg Neuts % (Manual) 77.0 H (40.0-70.0) % Lymphocytes % (Manual) 9.0 L (13.4-35.0) % Seg Neutrophils # 8.8 H (1.8-7.7) K/mm3 Seg Neutrophils # Man 8.4 H (1.8-7.7) K/mm3 Lymphocytes # (Manual) 1.0 L (1.2-5.4) K/mm3 Creatinine 0.6 L (0.8-1.3) mg/dL Glucose 161 H (75-100) mg/dL AST 59 H (5-40) units/L ALT 120 H (7-56) units/L Total Protein 6.1 L (6.3-8.2) g/dL Albumin 3.4 L (3.9-5) g/dL
[2020-08-19] MEDS: SODIUM CHLORIDE 0.9% 1000 ML 1,000 ML IV SCH (05:24)
[2020-08-19] MEDS: methylPREDNISolone Sod Succinate 125 MG/2 ML INJ IV SCH (05:24)
--- NOTE | 2020-08-19 09:50 | Progress Note ---
Assessment and Plan Cultures: Blood culture no growth today. SARS CoV2 PCR indeterminate, repeat neg Assessment: 35 years old male without any medical history admitted on 08/16/2020 due to 24-hour history of severe generalized malaise, fever, headaches and sore throat: #SIRS rule out sepsis: Fever resolved; of unclear etiology. Chest x-ray negative for consolidation. CT of the chest negative for consolidation or PE. Rapid strep antigen negative. Influenza antigen negative. SARS COV2 PCR negative x 2. Influenza PCR negative. Blood cultures no growth today. CSF not c/w meningitis. CT head with focal left ethmoidal sinusitis. Patient is on room air, no evidence of hypoxia. Noted procalcitonin mildly elevated at 0.4. Other possibilities: Mononucleosis #Transaminitis: improving. Of unclear etiology, slightly secondary to baseline systemic infection ? COVID-19 versus influenza. Ultrasound of the liver showing hepatic steatosis. Recommendations: -Obtain acute hepatitis panel panel -pending -Stop ceftriaxone and vancomycin -Start doxycycline 100 mg po bid total 10 days -send EBV and CMV serology OK to d/c home today. ID clinic f/u in 2 weeks All laboratory, cultures and imaging were reviewed. Will follow Marianna De Leon MD Infectious Diseases Territory Sales Professional [facility] [place] [facility] ([facility]) M [phone] O [phone] Subjective Date of service: 08/19/20 Principal diagnosis: febrile syndrome Interval history: Patient feels much better no fever no headaches no complaints Objective - Exam Narrative Exam: General appearance: Alert in NAD pleasant Eyes: anicteric sclerae, moist conjunctivae; no lid-lag; PERRLA HENT: Atraumatic; oropharynx clear with moist mucous membranes and no oral thrush; normal hard and soft palate. Neck: Supple Lungs: CTA, with normal respiratory effort and no intercostal retractions CV: RRR no murmur Abdomen: Soft, non-tender; no masses or hepatosplenomegaly Extremities: no edema, no cyanosis Skin: No rash. Psych: Appropriate affect, alert and oriented to person, place and time. Neuro: alert and oriented x 3. Moving all extermities - Constitutional Vitals: Vital Signs Temp Pulse Resp BP Pulse Ox 98.0 F 68 16 119/73 94 08/19/20 05:58 08/19/20 05:58 08/19/20 05:58 08/19/20 05:58 08/19/20 05:58 Temperature -Last 24 Hours Temperature 98.0 F Temperature 97.8 F Temperature 98.4 F Temperature 97.8 F - Labs CBC & Chem 7: 08/18/20 06:30 08/18/20 06:30 Labs: Abnormal lab results 08/18/20 08/18/20 Range/Units 06:30 06:30 Seg Neuts % (Manual) 77.0 H (40.0-70.0) % Lymphocytes % (Manual) 9.0 L (13.4-35.0) % Seg Neutrophils # Man 8.4 H (1.8-7.7) K/mm3 Lymphocytes # (Manual) 1.0 L (1.2-5.4) K/mm3 AST 59 H (5-40) units/L ALT 120 H (7-56) units/L Total Protein 6.1 L (6.3-8.2) g/dL Albumin 3.4 L (3.9-5) g/dL
[2020-08-19] MEDS ORDERED: cefTRIAXone/NS 2 GM/100 ML 2 GM/100 ML BAG IV SCH (10:00)
[2020-08-19] MEDS ORDERED: DOXYCYCLINE 100 MG CAP PO SCH (11:00)
--- NOTE | 2020-08-19 11:01 | Event Note ---
Date: 08/19/20 Repeat Covid-19 PCR negative. Patient remains on RA with negative chest imaging. We will sign off. Please call us with questions or new concerns.
--- NOTE | 2020-08-19 12:21 | Discharge Summary ---
Providers - Providers Date of Admission: 08/16/20 07:11 Date of discharge: 08/19/20 Attending physician: CEHRRY BALTAZAR 08/16/20 06:31 Consult to Physician [CONS] Routine Comment: Consulting Provider: REDD ENCISO Physician Instructions: Reason For Exam: sepsis 08/16/20 06:48 Consult to Physician [CONS] Routine Comment: Consulting Provider: NIA SANDY Physician Instructions: Reason For Exam: acute respiratory failure Primary care physician: CONSULTING SYSTEMS ENGINEER Hospitalization Condition: Stable Disposition: DC-01 TO HOME OR SELFCARE Time spent for discharge: 34 minutes Core Measure Documentation - Palliative Care Palliative Care/ Comfort Measures: Not Applicable - Core Measures Any of the following diagnoses?: none Exam - Constitutional Vitals: Temp Pulse Resp BP Pulse Ox 98.0 F 68 16 119/73 94 08/19/20 05:58 08/19/20 05:58 08/19/20 05:58 08/19/20 05:58 08/19/20 05:58 Plan Activity: advance as tolerated Diet: regular Follow up with: CATALINA PRATT MD [Primary Care Provider] - 3-5 Days REDD ENCISO MD [Staff Physician] - 7 Days Prescriptions: DOXYCYCLINE Hyclate [Vibramycin CAP] 100 mg PO BID #10 tab Zinc Sulfate 220 mg PO QDAY #14 capsule
[2020-08-19 17:47] VITALS: BP 123/75
== END 2020-08-19 18:35 | disposition home or self-care (01) | DRG 872 ==
LOC: ED 23:34 → 3A 08-16 06:05 → OBSVTOIN 08-16 07:11 → IMCU 08-16 07:37 → 3A 08-17 21:27
PROVIDERS: ADMIT Internal Medicine; ATTEND Internal Medicine
PROC: 009U3ZX Drainage of Spinal Canal, Percutaneous Approach, Diagnostic (ICD-10-PCS; principal; 2020-08-18)
PROC: B01B1ZZ Fluoroscopy of Spinal Cord using Low Osmolar Contrast (ICD-10-PCS; 2020-08-18)
DX: A41.9 Sepsis, unspecified organism (principal); F17.200 Nicotine dependence, unspecified, uncomplicated; R74.01 Elevation of levels of liver transaminase levels; Z20.828 Contact with and (suspected) exposure to other viral communicable diseases
CPT/HCPCS: 36415; 62270; 70450; 71045; 71275; 76700; 77003; 80048; 80053; 80074; 80076; 81001; 82140; 82728; 82805; 82947; 83036; 83615; 84145; 84160; 85007; 85025; 85379; 85610; 86140; 86592; 87040; 87086; 87116; 87400; 87430; 89051; 93005; 96374; 96375; G0378; 87502; J0456; J0692; J0696; J2930; J3370; J7030; J7040; J7050; Q9967; U0003